=== PATIENT | female | born 1985 | race African-American/Black ===

== ENCOUNTER 2023-07-16 01:51 | Emergency (ER) | payer BC, SELFPAY ==
[2023-07-16 01:57] VITALS: BP 169/103
--- NOTE | 2023-07-16 02:10 | ED.GENMED ---
History of Present Illness
<RENETTA Philip - Last Filed: 07/16/23 21:53>
General
Chief Complaint: Chest Pain
Source: patient and previous hospital records
Exam Limitations: none
Time Seen by Provider: 07/16/23 02:06
Nursing documentation reviewed up to this point in time: agreed with
Travel History
Have you had any contact with someone who has COVID-19?: No
Do you have any symptoms of coronavirus? Fever > 100 degrees, chills, cough, shortness of breath, sore throat, loss of taste or smell, muscle aches, or headache?: No
History of Present Illness
History of Present Illness:
This is a 37 year old female with a PMH of costochondritis, GERD, and asthma presenting to the ED c/o CP, nausea and R arm pain x 3 hours. Pt states the pain is a constant 'achy, sharp, dull pain' that feels as though her 'chest is rolled over on
itself.' She states the pain is localized to the center of her chest and slightly to the left side of her chest as well. She has associated constant nausea and right arm pain that is not alleviated or aggravated by anything. Pt has been seen
multiple times in the past for similar symptoms and reports that her symptoms feel the same as her previous visits. She recently had a stress test which came back normal. She denies any SOB, vomiting, dizziness, lightheadedness, jaw pain, DUEÑAS,
abdominal pain, leg pain or swelling, or any palpitations.
Pt has a family hx of HTN, HLD, CAD, DM, CVA and CHF. She denies drug or tobaccos use and drinks alcohol socially.
Past History
<RENETTA Philip - Last Filed: 07/16/23 21:53>
Past History
ED Past Medical History: Asthma, GERD and Other (Migraine headaches)
ED Past Surgical History: and Orthopedic (Left leg surgery for a fractured tib-fib)
Patient has exhibited threatening behavior?: No
PSI?: No
Social History
Tobacco: Former smoker
Alcohol: Occasional
Drug: None
Personal: Single
Living: with family
Employment: Employed
Family History
Family History: Diabetes, Hypertension, CAD and Other (Noncontributory)
Review of Systems
<Mercy RENETTA Lopez - Last Filed: 07/16/23 21:53>
Review of Systems
Allergies reviewed?: Yes
All Other Systems: ROS reviewed and negative except as documented in HPI and ROS
Constitutional: Reports no symptoms
Respiratory: Reports no symptoms; Denies trouble breathing
Cardiac: Reports chest pain; Denies palpitations
ABD/GI: Reports nausea; Denies abdominal pain or vomiting
Musculoskeletal: Reports no symptoms; Denies edema
Skin: Reports no symptoms; Denies itching
Neurological: Reports no symptoms; Denies dizzy or headache
Phy Exam
<[facility] [place] - Last Filed: 07/16/23 21:53>
General Physical Exam
General Presentation: moderate distress
General age: appears stated age
General Skin: warm and dry
General Habitus: obese
General Mental: alert
General Hydration: appears well hydrated
Cardiovascular Exam
Cardiovascular Exam: regular rate/rhythm, no edema, no murmur and normal peripheral pulses
Heart Sounds: normal
Pulmonary Exam
Pulmonary Exam: lungs clear, no respiratory distress, no rales, chest non tender, no crackles, no rhonchi and no wheezing
Oxygen Status: room air
Cough: no cough
Gastrointestinal Exam
Gastrointestinal Exam: normal bowel sounds, non tender, soft and non distended
Palpation: generalized: No tenderness
Auscultation of Abdomen: normal
Musculoskeletal Exam
Musculoskeletal Exam: other (no chest wall tenderness)
Skin Exam
Skin Exam: normal color and warm/dry
Psychiatric Exam
Psychiatric Exam: normal mood/affect
Scores
<Lynnmercedes RENETTA Lopez - Last Filed: 07/16/23 21:53>
Heart Score for Chest Pain Patients
STEMI patient?: Not applicable
Course
<RENETTA Philip - Last Filed: 07/16/23 21:53>
Orders/Labs/Results
Orders:
Orders
07/16/23 01:55
Electrocardiogram (*1) Urgent
Reason for Study: Chest Pain
Cardiac Monitoring- Treatment ONCE
EKG- Treatment ONCE
IV Insert/Care/Rem.- Treatment PRN
Test Result ONCE
O2 Therapy [RESP] Urgent
Titrate/Wean O2 to maintain O2 sat greater than (%): 90
Special Instructions: Maintain sats >/=90%
Pulse Ox/spot Check [RESP] Urgent
Quantity: 1
Special Instructions: ON ROOM AIR
07/16/23 02:16
Complete Blood Count/With Diff Urgent
Comprehensive Metabolic Panel Urgent
HCG, Serum Qualitative Screen Urgent
Troponin I Urgent
07/16/23 02:53
D-Dimer Urgent
07/16/23 03:49
CR Chest - 2 Views Urgent
Comment:
Reason For Exam: cp
07/16/23 05:11
Troponin I Urgent
Abnormal Lab Results
07/16/23
02:16
Eosinophils % 7.3 H %
(0-6)
07/16/23 02:16
07/16/23 02:16
Vital Signs
Initial and Last Documented VS:
Initial Vital Signs
Temp Pulse Resp BP Pulse Ox
98.3 F 68 18 169/103 97
07/16/23 01:57 07/16/23 01:57 07/16/23 01:57 07/16/23 01:57 07/16/23 01:57
Last Documented Vital Signs
Temp Pulse Resp BP Pulse Ox
98.3 F 62 17 146/79 98
07/16/23 01:57 07/16/23 06:40 07/16/23 06:40 07/16/23 05:11 07/16/23 06:40
<Chadwick Iniguez, - Last Filed: 07/16/23 06:27>
Orders/Labs/Results
Orders:
Orders
07/16/23 01:55
Electrocardiogram (*1) Urgent
Reason for Study: Chest Pain
Cardiac Monitoring- Treatment ONCE
EKG- Treatment ONCE
IV Insert/Care/Rem.- Treatment PRN
Test Result ONCE
O2 Therapy [RESP] Urgent
Titrate/Wean O2 to maintain O2 sat greater than (%): 90
Special Instructions: Maintain sats >/=90%
Pulse Ox/spot Check [RESP] Urgent
Quantity: 1
Special Instructions: ON ROOM AIR
07/16/23 02:16
Complete Blood Count/With Diff Urgent
Comprehensive Metabolic Panel Urgent
HCG, Serum Qualitative Screen Urgent
Troponin I Urgent
07/16/23 02:53
D-Dimer Urgent
07/16/23 03:49
CR Chest - 2 Views Urgent
Comment:
Reason For Exam: cp
07/16/23 05:11
Troponin I Urgent
Abnormal Lab Results
07/16/23
02:16
Eosinophils % 7.3 H %
(0-6)
07/16/23 02:16
07/16/23 02:16
Vital Signs
Initial and Last Documented VS:
Initial Vital Signs
Temp Pulse Resp BP Pulse Ox
98.3 F 68 18 169/103 97
07/16/23 01:57 07/16/23 01:57 07/16/23 01:57 07/16/23 01:57 07/16/23 01:57
Last Documented Vital Signs
Temp Pulse Resp BP Pulse Ox
98.3 F 62 17 146/79 98
07/16/23 01:57 07/16/23 06:40 07/16/23 06:40 07/16/23 05:11 07/16/23 06:40
<RENETTA Philip - Last Filed: 07/16/23 21:53>
*Critical Care Note
Total Time (30-74mins, 75-104mins- exclusive of procedures): Not Applicable
ED Attending Note
<RENETTA Philip - Last Filed: 07/16/23 21:53>
-
Portions of this chart may have been created with voice recognition software.� Occasional wrong word or��sound alike� substitutions may have occurred due to the inherent limitations of voice recognition software.
<Chadwick Iniguez DO - Last Filed: 07/16/23 06:27>
ED Attending Note
Patient seen and examined by attending physician: Yes
I performed the substantive portion of visit, reviewed & personally made and approve the management plan that is documented in note by myself or OPAL.: Yes
ED Attending Note:
Pleasant 37-year-old female that presents with chest pain with nausea and right arm pain that presented approximately 3 hours prior to arrival. Patient states that she has had chest pain similar to this in the past. She had a stress test over the
summer which she states was negative. She denies tobacco use. No previous cardiac history. She does have high blood pressure which is maintained on Coreg. Patient does have a history of anxiety which is maintained on hydroxyzine.
Vital signs are stable. Patient not hypoxic
Nursing note reviewed. I agree with nursing documentation up to this point in time.
Home Meds and allergies reviewed.
NUMBER AND COMPLEXITY OF PROBLEMS ADDRESSED AT THE ENCOUNTER
� Chronic conditions affecting care: Anxiety, GERD, hypertension
� Acute Exacerbation and/or Progression of Chronic Illness: Anxiety
� Differential Diagnosis includes: Anxiety, ACS, musculoskeletal pain, costochondritis, pleurisy
AMOUNT AND/OR COMPLEXITY OF DATA TO BE REVIEWED AND ANALYZED
I performed an independent evaluation of the following and my interpretation is:
EKG: EKG shows normal sinus rhythm rate of 70 with normal intervals, normal axis. No evidence of acute ischemia present. This is a normal EKG
CT:
X-rays:
Ultrasound:
Laboratory Studies:
Other:
Review of other/old records:
Clinical information was obtained by an independent historian:
Prescriptions/Medications Considered but not given:
Further testing considered but not performed:
RISK OF COMPLICATIONS AND/OR MORBIDITY OR MORTALITY OF PATIENT MANAGEMENT
Social determinants of health affecting care: Good Social Support
Discussion with other providers:
Escalation of care including admission/observation vs risk of discharge considered:
CRITICAL CARE NOTE:
Total Time (exclusive of procedures):
Update:
Discharge Plan
Departure
Patient Disposition: Home (Routine Discharge)
Date of Disposition: 07/16/23
Time of Disposition: 06:19
Patient with high blood pressure during this ER visit?: No
Condition: Good
Discharge Problem:
Chest pain
Instructions: Chest Pain PCP Follow Up, BLOOD PRESSURE
Prescriptions:
No Action
famotidine [Pepcid] 40 mg Tablet
40 mg PO DAILY
carvedilol [Coreg] 3.125 mg Tablet
3.125 mg PO BID
ibuprofen 600 mg Tablet
600 mg PO TID PRN (Reason: pain)
pantoprazole [Protonix] 40 mg tablet,delayed release (DR/EC)
40 mg PO DAILY Qty: 30 0RF
hydroxyzine HCl 25 mg Tablet
25 mg PO TID PRN (Reason: anxiety)
Referrals:
Dillan Stone DO [Family Provider] -
Activity Restrictions/Additional Instructions:
It was a pleasure meeting you and taking part in your care. We hope for your continued healing and wellness.
Please read discharge instructions in their entirety. However, they are for general education and may not describe your exact diagnosis at discharge. Information on your ER visit and medical conditions were discussed with you along with appropriate
follow up information...
If indicated, please take your medications as instructed and indicated on discharge paperwork.
Please schedule a follow up appointment as directed. Call to schedule an appointment
Please return to the emergency department with ANY change in, persisting, or worsening of symptoms. If any of your symptoms do not improve, or persist, or become more severe within 6-12 hours, please return to the emergency department for further
care.
Please return to the emergency department if you develop a headache, neck pain/stiffness, fever greater than 100.4F, chest pain, shortness of breath, persistent nausea, vomiting, slurred speech, difficulty walking, numbness/tingling, weakness, signs
of infection or any other symptoms that are worrisome to you.
If you have any questions or concerns please do not hesitate to call the Hospital at or E-mail me directly at [email or web address]
Interventions
Interventions:
*Risk Screen - Suicide Last Done: 07/16/23 01:57
*General Assessment Last Done: 07/16/23 01:57
*Neglect/Abuse Screening Last Done: 07/16/23 01:57
ED- Fall Risk Assessment Last Done: 07/16/23 01:57
*ED COVID-19 Vaccine History Last Done: 07/16/23 01:57
*Nursing Disposition Last Done: 07/16/23 06:40
ED- Cardiac Assessment Last Done: 07/16/23 02:21
Discharge Date and Time
Discharge Date/Time: 07/16/23 06:53
[2023-07-16 02:16] VITALS: BMI 57.0
[2023-07-16 02:26] LABS: % Basophils 0.8 % (0-2); % Eosinophils 7.3 % (0-6); % Immature Granulocytes 0.2 % (0-0.5); % Lymphocytes 33.1 % (20.5-51.1); % Monocytes 7.3 % (1.7-9.3); % Neutrophils 51.3 % (42.2-75.2); Absolute Basophils 0.1 10^3/uL (0-0.2); Absolute Eosinophils 0.6 10^3/uL (0-0.7); Absolute Lymphocytes 2.7 10^3/uL (1.2-3.4); Absolute Monocytes 0.6 10^3/uL (0.1-0.6); Absolute Neutrophils 4.2 10^3/uL (1.4-6.5); Hematocrit 37.3 % (37.0-47.0); Hemoglobin 12.7 g/dL (12.0-16.0); Mean Corpuscular Hgb 28.3 pg (27.0-31.0); Mean Corpuscular Volume 83.1 fL (81.0-99.0); Mean Platelet Volume 9.3 fL (7.4-10.4); Nucleated Red Blood Cells % 0 %; Platelet Count 369 10^3/uL (130-400); Red Blood Cell Count 4.49 10^6/uL (4.20-5.40); Red Cell Dist. Width 14.3 % (11.5-14.5); White Blood Cell Count 8.3 10^3/uL (4.8-10.8)
[2023-07-16 02:35] LABS: ALT (SGPT) 34 U/L (0-35); AST (SGOT) 32 U/L (14-36); Albumin 3.9 g/dl (3.5-5.0); Alkaline Phosphatase 112 U/L (38-126); Blood Urea Nitrogen 11 mg/dl (7-17); Calcium 9.1 mg/dl (8.4-10.2); Carbon Dioxide 26 mmol/L (22-30); Chloride 107 mmol/L (98-107); Estimated Creatinine Clearance > 125 ml/min; Glucose 93 mg/dl (70-99); Potassium 3.8 mmol/L (3.5-5.1); Sodium 138 mmol/L (135-145); Total Bilirubin 0.5 mg/dl (0.2-1.3); Total Protein 6.8 g/dl (6.3-8.2); eGFR > 60.00
[2023-07-16 02:37] LABS: HCG, Serum Qualitative Screen Negative
[2023-07-16 02:47] LABS: Troponin I < 0.012 ng/ml
[2023-07-16 03:22] LABS: D-Dimer 0.34 ug/mlFEU (0.00-0.50)
[2023-07-16 05:11] VITALS: BP 146/79
[2023-07-16 05:45] LABS: Troponin I < 0.012 ng/ml
== END 2023-07-16 06:53 | disposition home or self-care (01) ==
LOC: EMR 01:51
PROVIDERS: EMERGENCY PHYSICIAN Student in an Organized Health Care Education/Training Program; FAMILY PHYSICIAN Family Medicine
DX: R07.89 Other chest pain (principal); K21.9 Gastro-esophageal reflux disease without esophagitis; J45.909 Unspecified asthma, uncomplicated; Z87.891 Personal history of nicotine dependence
CPT/HCPCS: 99285; 71046; 80053; 84484; 84703; 85025; 85379; 93005

== ENCOUNTER 2024-04-01 09:45 | Emergency (ER) | payer BC, SELFPAY ==
[2024-04-01] VITALS (7 sets, daily range): BP systolic 109–168; BP diastolic 64–108
[2024-04-01 10:16] LABS: % Basophils 0.8 % (0-2); % Eosinophils 9.2 % (0-6); % Immature Granulocytes 0.5 % (0-0.5); % Lymphocytes 24.8 % (20.5-51.1); % Neutrophils 57.7 % (42.2-75.2); Absolute Basophils 0.1 10^3/uL (0-0.2); Absolute Eosinophils 0.6 10^3/uL (0-0.7); Absolute Lymphocytes 1.6 10^3/uL (1.2-3.4); Absolute Monocytes 0.5 10^3/uL (0.1-0.6); Absolute Neutrophils 3.7 10^3/uL (1.4-6.5); Hematocrit 35.3 % (37.0-47.0); Hemoglobin 11.8 g/dL (12.0-16.0); Mean Corp Hgb Conc. 33.4 g/dL (33.0-37.0); Mean Corpuscular Hgb 28.5 pg (27.0-31.0); Mean Corpuscular Volume 85.3 fL (81.0-99.0); Mean Platelet Volume 9.2 fL (7.4-10.4); Nucleated Red Blood Cells % 0 %; Platelet Count 370 10^3/uL (130-400); Red Blood Cell Count 4.14 10^6/uL (4.20-5.40); Red Cell Dist. Width 13.4 % (11.5-14.5); White Blood Cell Count 6.4 10^3/uL (4.8-10.8)
[2024-04-01 10:24] LABS: ALT (SGPT) 23 U/L (0-35); AST (SGOT) 23 U/L (14-36); Albumin 3.8 g/dl (3.5-5.0); Alkaline Phosphatase 74 U/L (38-126); Blood Urea Nitrogen 11 mg/dl (7-17); Calcium 9.4 mg/dl (8.4-10.2); Carbon Dioxide 26 mmol/L (22-30); Chloride 106 mmol/L (98-107); Glucose 98 mg/dl (70-99); Potassium 4.4 mmol/L (3.5-5.1); Sodium 142 mmol/L (135-145); Total Bilirubin 0.3 mg/dl (0.2-1.3); Total Protein 6.7 g/dl (6.3-8.2); eGFR > 60.00
[2024-04-01 10:35] LABS: Troponin I < 0.012 ng/ml
--- NOTE | 2024-04-01 12:01 | ED.GENMED ---
History of Present Illness
General
Chief Complaint: Chest Pain
Source: patient
Exam Limitations: none
Time Seen by Provider: 04/01/24 11:16
Nursing documentation reviewed up to this point in time: agreed with
History of Present Illness
History of Present Illness:
38 yr old female presents to the ER for evaluation of chest pain. Patient reports she was awoken by chest pain 4:00 in the morning that rates her left shoulder. She has a history of intermittent chest pain and reports she is been here multiple
times does have a link trainer teacher at [place], Dr. Reg Spencer. She reports this summer in fact she had a normal stress test had a normal Holter monitor and normal echo they are unsure of the diagnosis. This is her typical chest pain.
She was given hydroxyzine to take when she gets symptoms because she is often gets anxious with symptoms. She also complains of migraine type headache with this and is very nauseous.
She is a non smoker no oral contraceptives. no dvt/pe history.
Past History
Past History
ED Past Medical History: Asthma, GERD and Other (Migraine headaches)
ED Past Surgical History: and Orthopedic (Left leg surgery for a fractured tib-fib)
Patient has exhibited threatening behavior?: No
PSI?: No
Social History
Tobacco: Former smoker
Alcohol: Occasional
Drug: None
Personal: Single
Living: with family
Employment: Employed
Family History
Family History: Diabetes, Hypertension, CAD and Other (Noncontributory)
Review of Systems
Review of Systems
Allergies reviewed?: Yes
All Other Systems: ROS reviewed and negative except as documented in HPI and ROS
Constitutional: Reports no symptoms; Denies fever, fatigue or chills
Respiratory: Reports no symptoms
Cardiac: Reports chest pain; Denies diaphoresis, palpitations or syncope
ABD/GI: Reports no symptoms
: Reports no symptoms
Musculoskeletal: Reports no symptoms
Skin: Reports no symptoms
Neurological: Reports no symptoms
Psychiatric: Reports no symptoms
Phy Exam
General Physical Exam
General Presentation: no apparent distress
General age: appears stated age
General Skin: warm and dry
General Habitus: obese
General Mental: alert
General Hydration: appears well hydrated
Cardiovascular Exam
Cardiovascular Exam: regular rate/rhythm, no murmur and normal peripheral pulses
Pulmonary Exam
Pulmonary Exam: lungs clear, no respiratory distress and chest non tender
Neurological Exam
Neurological Exam: alert and oriented x3
Musculoskeletal Exam
Musculoskeletal Exam: full ROM
Skin Exam
Skin Exam: normal color and warm/dry
Psychiatric Exam
Psychiatric Exam: normal mood/affect
Scores
Heart Score for Chest Pain Patients
STEMI patient?: Not applicable
Course
Orders/Labs/Results
Orders:
Orders
04/01/24 09:46
EKG [Electrocardiogram (*1)] Urgent
Reason for Study: Chest Pain
EKG- Treatment ONCE
04/01/24 09:57
Complete Blood Count/With Diff Urgent
Comprehensive Metabolic Panel Urgent
Troponin I Urgent
04/01/24 10:10
CR Chest - 2 Views Urgent
Comment:
Reason For Exam: CP
04/01/24 12:14
Ketorolac [Toradol] 15 mg IV NOW STA
04/01/24 12:16
0.9% Sodium Chloride 1000 ml [Nss] 1,000 ml IV BOLUS
Abnormal Lab Results
04/01/24
09:57
RBC 4.14 L 10^6/uL
(4.20-5.40)
Hgb 11.8 L g/dL
(12.0-16.0)
Hct 35.3 L %
(37.0-47.0)
Eosinophils % 9.2 H %
(0-6)
04/01/24 09:57
04/01/24 09:57
Vital Signs
Initial and Last Documented VS:
Initial Vital Signs
Temp Pulse Resp BP Pulse Ox
99.6 F 78 18 168/108 100
04/01/24 09:51 04/01/24 09:51 04/01/24 09:51 04/01/24 09:51 04/01/24 09:51
Last Documented Vital Signs
Temp Pulse Resp BP Pulse Ox
99.6 F 68 18 135/82 99
04/01/24 09:51 04/01/24 13:41 04/01/24 13:41 04/01/24 13:41 04/01/24 13:41
Filling Machine Set Up Mechanic consulted with Physician
Filling Machine Set Up Mechanic consulted with physician?: Yes
Name of Physician Consulted: Genoveva
MDM/Problems Addressed
MDM/Problems Addressed:
Patient is a 38-year-old male with frequent chest pain has had full workup by [place] [facility]ology including stress test echo and Holter monitor. She presented with chest pain at 4 AM. Troponin was done 6 hrs after and negative. She is in no acute
distress no acute findings on EKG. In addition patient complains of a headache and was given Toradol. Patient rested here slept in no acute distress after Toradol headache resolved feeling better chest pain resolved will DC home with outpatient
followed by her link trainer teacher
*Radiology
Radiology exam reviewed: radiology read reviewed
*Pulse Oximetry
Patient hypoxic: no
*EKG
Interpreted by ED Provider?: Yes
Heart Rate: 73
Rate: normal
Rhythm: sinus
Ischemia: no ischemia
*Critical Care Note
Total Time (30-74mins, 75-104mins- exclusive of procedures): Not Applicable
ED Attending Note
-
Portions of this chart may have been created with voice recognition software.� Occasional wrong word or��sound alike� substitutions may have occurred due to the inherent limitations of voice recognition software.
Discharge Plan
Departure
Patient Disposition: Home (Routine Discharge)
Date of Disposition: 04/01/24
Time of Disposition: 14:42
Patient with high blood pressure during this ER visit?: Yes
Condition: Fair
Covid-19: Not Applicable
Discharge Problem:
Chest pain
Instructions: Chest Pain NON-DHP Email Production Consultant Follow Up
Prescriptions:
No Action
famotidine [Pepcid] 40 mg Tablet
40 mg PO DAILY
carvedilol [Coreg] 3.125 mg Tablet
3.125 mg PO BID
ibuprofen 600 mg Tablet
600 mg PO TID PRN (Reason: pain)
pantoprazole [Protonix] 40 mg tablet,delayed release (DR/EC)
40 mg PO DAILY Qty: 30 0RF
hydroxyzine HCl 25 mg Tablet
25 mg PO TID PRN (Reason: anxiety)
Referrals:
Dillan Stone DO [Family Provider] -
Activity Restrictions/Additional Instructions:
Follow-up with your link trainer teacher as discussed return if any worsening of symptoms.
Interventions
Interventions:
*Risk Screen - Suicide Last Done: 04/01/24 09:46
*General Assessment Last Done: 04/01/24 09:46
*Neglect/Abuse Screening Last Done: 04/01/24 09:46
*ED COVID-19 Vaccine History Last Done: 04/01/24 09:46
*Nursing Disposition Last Done: 04/01/24 14:54
ED- Cardiac Assessment Last Done: 04/01/24 11:54
Discharge Date and Time
Print Language: AMHARIC
[2024-04-01] MEDS: TORADOL 15 MG IV (12:25)
[2024-04-01] MEDS: NSS 1000 IV (12:26)
== END 2024-04-01 15:44 | disposition home or self-care (01) ==
LOC: EMR 09:45
PROVIDERS: EMERGENCY PHYSICIAN Emergency Medicine; FAMILY PHYSICIAN Family Medicine
DX: R07.89 Other chest pain (principal); J45.909 Unspecified asthma, uncomplicated; K21.9 Gastro-esophageal reflux disease without esophagitis; Z82.49 Family history of ischemic heart disease and other diseases of the circulatory system; Z83.3 Family history of diabetes mellitus
CPT/HCPCS: 99283; 96374; 96361; 71046; 80053; 84484; 85025; 93005

== ENCOUNTER 2024-04-10 16:20 | Emergency (ER) | payer BC, SELFPAY ==
[2024-04-10 16:27] VITALS: BMI 56.1
[2024-04-10 16:36] VITALS: BP 133/78
--- NOTE | 2024-04-10 16:56 | ED.GENMED ---
History of Present Illness
General
Chief Complaint: Chest Pain
Source: patient
Time Seen by Provider: 04/10/24 16:40
History of Present Illness
History of Present Illness:
38yoF with a history of asthma and GERD presenting via EMS for evaluation of palpitations. Patient was sitting on the couch watching TV with her daughter about 1 hour ago when she had an abrupt onset of palpitations. She felt like her heart was
racing. She then started to experience chest tightness, shortness of breath, and dizziness. There was no loss of consciousness. her AppleWatch indicated that her heart rate went up to 175. Patient reports a history of similar episodes in the
past. She was last seen in the ED on 04/01/2024 for chest pain and workup was unremarkable at that time. She follows with [facility]. She reports having a Holter monitor and a stress test within the past year which were both normal. Patient
was told that she has a 'extra beat and a skipped beat.' She is not currently on any cardiac medications.
Past History
Past History
ED Past Medical History: Asthma, GERD and Other (Migraine headaches)
ED Past Surgical History: and Orthopedic (Left leg surgery for a fractured tib-fib)
Patient has exhibited threatening behavior?: No
PSI?: No
Social History
Tobacco: Former smoker
Alcohol: Occasional
Drug: None
Personal: Single
Living: with family
Employment: Employed
Family History
Family History: Diabetes, Hypertension, CAD and Other (Noncontributory)
Phy Exam
General Physical Exam
General Presentation: well appearing and no apparent distress
General age: appears stated age
General Skin: warm and dry
General Habitus: normal
General Mental: alert
General Hydration: appears well hydrated
ENT Exam
ENT Exam: normocephalic
Cardiovascular Exam
Cardiovascular Exam: regular rate/rhythm, no edema and no murmur
Pulmonary Exam
Pulmonary Exam: lungs clear, no respiratory distress, no rales, no crackles and no wheezing
Neurological Exam
Neurological Exam: alert
[place] Coma Scale
Eye Opening: Spontaneous
Verbal Response: Oriented
Motor Response: Obeys Commands
GCS Total Score: 15
Skin Exam
Skin Exam: normal color and warm/dry
Psychiatric Exam
Psychiatric Exam: normal mood/affect
Scores
Heart Score for Chest Pain Patients
STEMI patient?: No
History: Slightly or Non-Suspicious
ECG: Normal
Age: </= 45 years
Risk Factors: 1 or 2 Risk Factors
Troponin: </= Normal Limit
Heart Score for Chest Pain Patients: 1
Heart Score Risk: 2.5% MACE over next 6 weeks
Course
Orders/Labs/Results
Orders:
Orders
04/10/24 16:38
Electrocardiogram (*1) Urgent
Reason for Study: Other
Other Reason for Exam: Respiratory Distress
EKG- Treatment ONCE
Test Result ONCE
CR Chest - 2 Views Urgent
Comment:
Reason For Exam: respiratory distress
04/10/24 16:48
Complete Blood Count/With Diff Urgent
Comprehensive Metabolic Panel Urgent
D-Dimer Urgent
HCG, Serum Qualitative Screen Urgent
Comment: Notify provider if positive test present
Magnesium Urgent
Comment: D-DIMER,TSH,MAG ADDED ON BY FLOOR 5PM 04-10-24
NT-proBNP Urgent
Prothrombin Time Urgent
TSH Urgent
Troponin I Urgent
04/10/24 16:54
Add On- LAB Urgent
Tests Added?: D-dimer, TSH, magnesium
Ipratropium/Albuterol Sulfate [Duoneb] 3 ml INH R NOW STA
04/10/24 18:42
Electrocardiogram (*1) Urgent
Reason for Study: Chest Pain
EKG- Treatment ONCE
04/10/24 19:16
Troponin I Urgent
Abnormal Lab Results
04/10/24
16:48
RBC 4.01 L 10^6/uL
(4.20-5.40)
Hgb 11.2 L g/dL
(12.0-16.0)
Hct 33.4 L %
(37.0-47.0)
Eosinophils % 7.7 H %
(0-6)
Glucose 108 H mg/dl
(70-99)
04/10/24 16:48
04/10/24 16:48
Vital Signs
Initial and Last Documented VS:
Initial Vital Signs
BP
133/78
04/10/24 16:36
Last Documented Vital Signs
Temp Pulse Resp BP Pulse Ox
97.8 F 83 19 138/91 99
04/10/24 20:30 04/10/24 20:30 04/10/24 20:30 04/10/24 19:00 04/10/24 20:30
MDM/Problems Addressed
Differential Diagnosis Includes:
38yoF here with palpitations, chest tightness, SOB, and dizziness that started 1 hour ago while watching TV. History of similar symptoms in the past. All prior cardiac testing including stress test/Holter monitor has been negative. Patient is
afebrile and hemodynamically stable. She is well-appearing in no acute distress. Exam is reassuring. Differential diagnosis includes but is not limited to: Arrhythmia, thyroid dysfunction, electrolyte abnormality, ACS
Initial ED plan: Check cardiac labs, D-dimer, TSH, magnesium, EKG, and CXR.
*EKG
Interpreted by ED Provider?: Yes
EKG Intrepretation Date: 04/10/24
Heart Rate: 71
Rate: normal
Rhythm: sinus
[place]: normal axis
Interval: normal interval
QRS Pattern: normal QRS
Ischemia: no ischemia
*Critical Care Note
Total Time (30-74mins, 75-104mins- exclusive of procedures): Not Applicable
Update Note
Update Note:
EKG shows normal sinus rhythm without ischemic changes. Troponin and BNP within normal limits. D-dimer normal making PE very unlikely. Remainder of labs reassuring including normal electrolytes and TSH. Chest x-ray clear. Delta troponin/EKG
performed at 3 hours unchanged. No telemetry events throughout ED stay. Patient is feeling improved on multiple reassessments. She is stable for discharge. She was encouraged to follow-up with her PCP and calender let off operator. ED return precautions
discussed. She expressed understanding is agreeable to plan. She was discharged in stable condition.
ED Attending Note
-
Portions of this chart may have been created with voice recognition software.� Occasional wrong word or��sound alike� substitutions may have occurred due to the inherent limitations of voice recognition software.
Discharge Plan
Departure
Patient Disposition: Home (Routine Discharge)
Date of Disposition: 04/10/24
Time of Disposition: 20:27
Patient with high blood pressure during this ER visit?: No
Discharge Problem:
Chest pain, Palpitations
Instructions: Chest Pain NON-DHP Hospice Home Care Coordinator Follow Up
Prescriptions:
No Action
famotidine [Pepcid] 40 mg Tablet
40 mg PO DAILY
carvedilol [Coreg] 3.125 mg Tablet
3.125 mg PO BID
ibuprofen 600 mg Tablet
600 mg PO TID PRN (Reason: pain)
pantoprazole [Protonix] 40 mg tablet,delayed release (DR/EC)
40 mg PO DAILY Qty: 30 0RF
hydroxyzine HCl 25 mg Tablet
25 mg PO TID PRN (Reason: anxiety)
Referrals:
Dillan Stone DO [Family Provider] -
Activity Restrictions/Additional Instructions:
Please call Friday to schedule follow-up appointments with your family doctor and calender let off operator. Return to the ER with any new or worsening symptoms.
Interventions
Interventions:
*Risk Screen - Suicide Last Done: 04/10/24 16:27
*General Assessment Last Done: 04/10/24 16:27
*Neglect/Abuse Screening Last Done: 04/10/24 16:27
ED- Fall Risk Assessment Last Done: 04/10/24 16:38
*ED COVID-19 Vaccine History Last Done: 04/10/24 16:27
*Nursing Disposition Last Done: 04/10/24 20:47
ED- Cardiac Assessment Last Done: 04/10/24 16:38
Discharge Date and Time
Discharge Date/Time: 04/10/24 20:52
Print Language: HUNGARIAN
[2024-04-10 16:58] LABS: % Basophils 0.7 % (0-2); % Eosinophils 7.7 % (0-6); % Immature Granulocytes 0.1 % (0-0.5); % Lymphocytes 29.2 % (20.5-51.1); % Monocytes 6.8 % (1.7-9.3); % Neutrophils 55.5 % (42.2-75.2); Absolute Basophils 0.1 10^3/uL (0-0.2); Absolute Eosinophils 0.5 10^3/uL (0-0.7); Absolute Monocytes 0.5 10^3/uL (0.1-0.6); Absolute Neutrophils 3.8 10^3/uL (1.4-6.5); Hematocrit 33.4 % (37.0-47.0); Hemoglobin 11.2 g/dL (12.0-16.0); Mean Corp Hgb Conc. 33.5 g/dL (33.0-37.0); Mean Corpuscular Hgb 27.9 pg (27.0-31.0); Mean Corpuscular Volume 83.3 fL (81.0-99.0); Mean Platelet Volume 8.9 fL (7.4-10.4); Nucleated Red Blood Cells % 0 %; Platelet Count 376 10^3/uL (130-400); Red Blood Cell Count 4.01 10^6/uL (4.20-5.40); Red Cell Dist. Width 13.3 % (11.5-14.5); White Blood Cell Count 6.9 10^3/uL (4.8-10.8)
[2024-04-10 17:00] VITALS: BP 128/78
[2024-04-10 17:07] LABS: INR 1.01; PT 13.1 Sec (11.4-14.6)
[2024-04-10 17:10] LABS: D-Dimer 0.43 ug/mlFEU (0.00-0.50)
[2024-04-10] MEDS: DUONEB 3 ML INH (17:11)
[2024-04-10 17:12] LABS: HCG, Serum Qualitative Screen Negative
[2024-04-10 17:15] LABS: ALT (SGPT) 24 U/L (0-35); AST (SGOT) 30 U/L (14-36); Albumin 3.8 g/dl (3.5-5.0); Alkaline Phosphatase 77 U/L (38-126); Blood Urea Nitrogen 12 mg/dl (7-17); Calcium 9.1 mg/dl (8.4-10.2); Carbon Dioxide 26 mmol/L (22-30); Chloride 106 mmol/L (98-107); Estimated Creatinine Clearance > 125 ml/min; Glucose 108 mg/dl (70-99); Magnesium 1.9 mg/dl (1.6-2.3); Potassium 4.3 mmol/L (3.5-5.1); Sodium 140 mmol/L (135-145); Total Bilirubin 0.3 mg/dl (0.2-1.3); Total Protein 6.6 g/dl (6.3-8.2); eGFR > 60.00
[2024-04-10 17:24] LABS: NT-proBNP 44.8 pg/ml; Troponin I < 0.012 ng/ml
[2024-04-10 17:45] LABS: TSH 0.59 uIU/ml (0.47-4.68)
[2024-04-10 18:04] VITALS: BP 116/66
[2024-04-10 19:00] VITALS: BP 138/91
[2024-04-10 19:58] LABS: Troponin I < 0.012 ng/ml
== END 2024-04-10 20:52 | disposition home or self-care (01) ==
LOC: EMR 16:20
PROVIDERS: Physician Assistant; EMERGENCY PHYSICIAN Student in an Organized Health Care Education/Training Program; FAMILY PHYSICIAN Family Medicine
DX: R00.2 Palpitations (principal); R07.89 Other chest pain; R06.02 Shortness of breath; R42 Dizziness and giddiness; J45.909 Unspecified asthma, uncomplicated; K21.9 Gastro-esophageal reflux disease without esophagitis; G43.909 Migraine, unspecified, not intractable, without status migrainosus; Z87.891 Personal history of nicotine dependence; Z82.49 Family history of ischemic heart disease and other diseases of the circulatory system; Z88.0 Allergy status to penicillin; Z88.8 Allergy status to other drugs, medicaments and biological substances
CPT/HCPCS: 99284; 94640; 71046; 80053; 83735; 83880; 84443; 84484; 84703; 85025; 85379; 85610; 93005

== ENCOUNTER 2024-09-30 00:38 | Emergency (ER) | payer OTHER, SELFPAY ==
[2024-09-30 00:41] VITALS: BP 154/96
[2024-09-30 01:15] LABS: Hematocrit 32.7 % (37.0-47.0); Mean Corp Hgb Conc. 33.6 g/dL (33.0-37.0); Mean Corpuscular Hgb 27.7 pg (27.0-31.0); Mean Corpuscular Volume 82.4 fL (81.0-99.0); Mean Platelet Volume 9.2 fL (7.4-10.4); Platelet Count 345 10^3/uL (130-400); Red Blood Cell Count 3.97 10^6/uL (4.20-5.40)
[2024-09-30 01:25] LABS: ALT (SGPT) 36 U/L (0-35); AST (SGOT) 29 U/L (14-36); Albumin 3.7 g/dl (3.5-5.0); Alkaline Phosphatase 81 U/L (38-126); Blood Urea Nitrogen 15 mg/dl (7-17); Calcium 9.3 mg/dl (8.4-10.2); Carbon Dioxide 24 mmol/L (22-30); Chloride 110 mmol/L (98-107); Glucose 103 mg/dl (70-99); Potassium 4.2 mmol/L (3.5-5.1); Sodium 143 mmol/L (135-145); Total Bilirubin 0.3 mg/dl (0.2-1.3); Total Protein 6.6 g/dl (6.3-8.2); eGFR > 60.00
[2024-09-30 01:28] LABS: % Eosinophils 8.8 % (0-6); % Immature Granulocytes 0.1 % (0-0.5); % Lymphocytes 35.6 % (20.5-51.1); % Monocytes 8.7 % (1.7-9.3); % Neutrophils 45.8 % (42.2-75.2); Absolute Basophils 0.1 10^3/uL (0-0.2); Absolute Eosinophils 0.6 10^3/uL (0-0.7); Absolute Lymphocytes 2.5 10^3/uL (1.2-3.4); Absolute Monocytes 0.6 10^3/uL (0.1-0.6); Absolute Neutrophils 3.2 10^3/uL (1.4-6.5); Nucleated Red Blood Cells % 0 %
[2024-09-30 01:40] LABS: Troponin I < 0.012 ng/ml
--- NOTE | 2024-09-30 03:30 | DOWNTIME ---
There was a [employer] Librarian Downtime on 09/30/2024 from 0200 to 10/01/2023 at 0318 . Downtime documentation of patient's care, including medication administrations, has been reconciled in the electronic record per guidelines. Refer to the
patient's paper chart under the miscellaneous tab to see printed paper medication records and downtime forms.
--- NOTE | 2024-09-30 03:35 | ED.GENMED ---
History of Present Illness
General
Chief Complaint: Breathing Problem
Source: patient
Exam Limitations: none
Time Seen by Provider: 09/30/24 03:21
Nursing documentation reviewed up to this point in time: agreed with
History of Present Illness
History of Present Illness:
38-year-old female presenting to the emergency department today for concern of chest pain shortness of breath starting roughly 1 hour prior to arrival when doing the dishes. Chest discomfort is ongoing feels like a pressure with associated
shortness of breath denies similar symptoms in the past. Does have a history of asthma but denies any wheezing. Denies any recent trauma surgery immobilization, leg swelling, history of blood clots or estrogen product usage.
Past History
Past History
ED Past Medical History: Asthma, GERD and Other (Migraine headaches)
ED Past Surgical History: and Orthopedic (Left leg surgery for a fractured tib-fib)
Patient has exhibited threatening behavior?: No
PSI?: No
Social History
Tobacco: Former smoker
Alcohol: Occasional
Drug: None
Personal: Single
Living: with family
Employment: Employed
Family History
Family History: Diabetes, Hypertension, CAD and Other (Noncontributory)
Review of Systems
Review of Systems
Allergies reviewed?: Yes
All Other Systems: ROS reviewed and negative except as documented in HPI and ROS
Phy Exam
Physical Exam
Physical Exam:
GENERAL: Alert , in no apparent distress
EYE: pupils equal and reactive
NECK: Supple, no significant adenopathy.
ENT: o/p clr, mmm.
CARDIAC: Regular rate and rhythm .
LUNGS: Clear breath sounds bilaterally, no acute respiratory distress, no wheezes/rales/rhonchi
ABDOMEN: Soft, without focal tenderness, no r/g, no cvat
NEUROLOGICAL: Alert and oriented, no focal neuro deficits
SKIN: Warm and dry, skin intact.
MUSCULOSKELETAL: No edema, well perfused.
PSYCH: Normal and appropriate interaction.
Course
Orders/Labs/Results
Orders:
Orders
09/30/24 00:49
Electrocardiogram (*1) Urgent
Reason for Study: Chest Pain
09/30/24 00:50
EKG- Treatment ONCE
09/30/24 01:02
Complete Blood Count/With Diff Urgent
Comprehensive Metabolic Panel Urgent
HCG, Serum Qualitative Screen Urgent
Comment: ADD ON
NT-proBNP Urgent
Comment: ADD ON
Troponin I Urgent
09/30/24 02:58
Aspirin 325 mg .ROUTE .STK-MED ONE
09/30/24 03:21
Add On- LAB Urgent
Tests Added?: serum hcg, pro BNP
09/30/24 03:22
CR Chest - 2 Views Urgent
Comment:
Reason For Exam: chest pain, SOB
09/30/24 03:23
Electrocardiogram (*1) Urgent
Reason for Study: Chest Pain
EKG- Treatment ONCE
09/30/24 03:52
Troponin I Urgent
Abnormal Lab Results
09/30/24
01:02
RBC 3.97 L 10^6/uL
(4.20-5.40)
Hgb 11.0 L g/dL
(12.0-16.0)
Hct 32.7 L %
(37.0-47.0)
Eosinophils % 8.8 H %
(0-6)
Chloride 110 H mmol/L
(98-107)
Glucose 103 H mg/dl
(70-99)
ALT 36 H U/L
(0-35)
09/30/24 01:02
09/30/24 01:02
Vital Signs
Initial and Last Documented VS:
Initial Vital Signs
Pulse Resp BP
74 26 154/96
09/30/24 00:41 09/30/24 00:41 09/30/24 00:41
Last Documented Vital Signs
Temp Pulse Resp BP Pulse Ox
98 F 75 16 148/97 100
09/30/24 02:47 09/30/24 03:57 09/30/24 03:57 09/30/24 03:57 09/30/24 02:47
MDM/Problems Addressed
MDM/Problems Addressed:
38-year-old female presenting to the emergency department today with concerns of shortness of breath chest pressure starting roughly an hour prior to arrival. On arrival here patient with normal vital signs normal heart rate normal pulse ox no
recent trauma surgery immobilization patient is PERC negative. PE very unlikely. EKG is normal. Labs unremarkable initial troponin negative. Second troponin negative patient no distress here sleeping. Does not appear to be consistent with ACS
normal chest x-ray. Patient appears stable for outpatient cardiology follow-up. Has seen multiple portrait photographer in the past with no explanation of her symptoms. Return precautions given.
*Critical Care Note
Total Time (30-74mins, 75-104mins- exclusive of procedures): Not Applicable
ED Attending Note
-
Portions of this chart may have been created with voice recognition software.� Occasional wrong word or��sound alike� substitutions may have occurred due to the inherent limitations of voice recognition software.
Discharge Plan
Departure
Patient Disposition: Home (Routine Discharge)
Date of Disposition: 09/30/24
Time of Disposition: 04:46
Patient with high blood pressure during this ER visit?: No
Condition: Good
Covid-19: Not Applicable
Discharge Problem:
Chest pain
Instructions: Chest Pain NON-[facility] Interventional Pain Physician Follow Up
Prescriptions:
No Action
famotidine [Pepcid] 40 mg Tablet
40 mg PO DAILY
carvedilol [Coreg] 3.125 mg Tablet
3.125 mg PO BID
ibuprofen 600 mg Tablet
600 mg PO TID PRN (Reason: pain)
pantoprazole [Protonix] 40 mg tablet,delayed release (DR/EC)
40 mg PO DAILY Qty: 30 0RF
hydroxyzine HCl 25 mg Tablet
25 mg PO TID PRN (Reason: anxiety)
Referrals:
Dillan Stone DO [Family Provider] -
Activity Restrictions/Additional Instructions:
You came to the emergency department today with concerns of chest pain. Here you had a reassuring assessment. Please follow closely with your portrait photographer. Return for any worsening, new or concerning symptoms.
Interventions
Interventions:
*Risk Screen - Suicide Last Done: 09/30/24 00:41
*General Assessment Last Done: 09/30/24 03:58
*Neglect/Abuse Screening Last Done: 09/30/24 00:41
*ED- Fall Risk Assessment Last Done: 09/30/24 03:57
*ED COVID-19 Vaccine History Last Done: 09/30/24 03:58
ED- Cardiac Assessment Last Done: 09/30/24 03:58
ED- Pulmonary Assessment Last Done: 09/30/24 03:58
Discharge Date and Time
Print Language: CYPRIOT
[2024-09-30 03:48] LABS: HCG, Serum Qualitative Screen Negative
[2024-09-30 03:57] VITALS: BP 148/97
[2024-09-30 04:04] LABS: NT-proBNP 29.1 pg/ml
[2024-09-30 04:36] LABS: Troponin I < 0.012 ng/ml
== END 2024-09-30 05:06 | disposition home or self-care (01) ==
LOC: EMR 00:38
PROVIDERS: Physician Assistant; EMERGENCY PHYSICIAN Emergency Medicine; FAMILY PHYSICIAN Family Medicine
DX: R07.9 Chest pain, unspecified (principal); R06.02 Shortness of breath; J45.909 Unspecified asthma, uncomplicated; Z87.891 Personal history of nicotine dependence
CPT/HCPCS: 99285; 71046; 80053; 83880; 84484; 84703; 85025; 93005

== ENCOUNTER 2025-05-01 19:01 | Emergency (ER) | payer OTHER, BC, SELFPAY ==
[2025-05-01 19:04] VITALS: BP 201/115
[2025-05-01 19:24] LABS: Hematocrit 37.4 % (37.0-47.0); Hemoglobin 11.8 g/dL (12.0-16.0); Mean Corp Hgb Conc. 31.6 g/dL (33.0-37.0); Mean Corpuscular Volume 87.6 fL (81.0-99.0); Nucleated Red Blood Cells % 0 %; Platelet Count 334 10^3/uL (130-400); Red Cell Dist. Width 15.9 % (11.5-14.5)
[2025-05-01 19:36] LABS: HCG, Serum Qualitative Screen Positive
[2025-05-01 19:43] VITALS: BMI 55.1
[2025-05-01 19:44] LABS: ALT (SGPT) 54 U/L (0-35); AST (SGOT) 39 U/L (14-36); Albumin 3.7 g/dl (3.5-5.0); Alkaline Phosphatase 79 U/L (38-126); Blood Urea Nitrogen 12 mg/dl (7-17); Calcium 9.2 mg/dl (8.4-10.2); Carbon Dioxide 26 mmol/L (22-30); Chloride 104 mmol/L (98-107); Glucose 87 mg/dl (70-99); Lipase 109 U/L (23-300); Potassium 3.8 mmol/L (3.5-5.1); Sodium 133 mmol/L (135-145); Total Protein 6.8 g/dl (6.3-8.2); eGFR > 60.00
--- NOTE | 2025-05-01 19:44 | EDRN ---
Pt complains of lower abdominal pain R > L. Pt is 5 weeks . G3A1P1. Pt had spontaneous miscarriage with first 2013. Pain has had pt doubled over throughout the day which prompted ED visit. Earlier in the week, pt had crampy
intermittent pain. Pain now is more intense. Pain waxes and wanes described as sharp when intense as well as crampy. Nausea no vomiting. No fever/chills/cough, cp, sob, urinary symptoms. Appetite decreased. No pain medication taken.
[2025-05-01 19:50] LABS: Urine Character Slightly Cloudy (Clear)
[2025-05-01 19:51] VITALS: BP 123/71
--- NOTE | 2025-05-01 19:58 | EDRN ---
Pt stopped taking all her medications when she found out she is . Pt had a tele health appointment with a doctor regarding BP medication and she was prescribed labetalol but says she is concerned about taking this and wants to talk with her
regular doctor about BP medication. Repeat BP in ED normal and pt says that is normal for her.
--- NOTE | 2025-05-01 20:23 | ED.GENMED ---
History of Present Illness
<Hugh Dos Santos MD - Last Filed: 05/03/25 19:47>
General
Chief Complaint: Abdominal Pain
Time Seen by Provider: 05/01/25 20:18
History of Present Illness
History of Present Illness:
Patient is a 39-year-old G3, P1 at 5 weeks presenting to the emergency department abdominal pain. Patient states that her for her first in 2013 was a spontaneous . Second in 2014 was uneventful. This is her
third . She has developed abdominal pain for the past week. Is in the right lower quadrant. It is a dull ache that intermittently worsens. It has been persistent for the past week. Some nausea vomiting that she attributes to .
No diarrhea. No vaginal discharge. No vaginal bleeding. Prior . No history of kidney stones. No urinary symptoms.
Past History
<Hugh Dos Santos MD - Last Filed: 05/03/25 19:47>
Past History
ED Past Medical History: Asthma, GERD and Other (Migraine headaches)
ED Past Surgical History: and Orthopedic (Left leg surgery for a fractured tib-fib)
Patient has exhibited threatening behavior?: No
PSI?: No
Social History
Tobacco: Former smoker
Alcohol: Occasional
Drug: None
Personal: Single
Living: with family
Employment: Employed
Family History
Family History: Diabetes, Hypertension, CAD and Other (Noncontributory)
Phy Exam
<Hugh Dos Santos MD - Last Filed: 05/03/25 19:47>
Physical Exam
Physical Exam:
GENERAL: in no acute distress
HEENT: normocephalic, extraocular movements intact, moist oral mucosa
NECK: normal inspection
RESPIRATORY: no respiratory distress, clear to auscultation bilaterally
CARDIOVASCULAR: regular rate and rhythm
ABDOMEN/: soft, non-distended, right lower quadrant tenderness no rebound or guarding
EXTREMITIES: non-tender, no edema/swelling
NEUROLOGIC: awake and alert, moves all extremities
SKIN: warm
Course
<Hugh Dos Santos MD - Last Filed: 05/03/25 19:47>
Orders/Labs/Results
Orders:
Orders
05/01/25 19:08
Test Result ONCE
05/01/25 19:18
Beta HCG Quantitative Urgent
Comment: ADD ON
Complete Blood Count/With Diff Urgent
Comprehensive Metabolic Panel Urgent
HCG, Serum Qualitative Screen Urgent
Lipase Urgent
05/01/25 19:38
Add On- LAB Urgent
Tests Added?: hcg quantitative
05/01/25 19:41
Urinalysis Reflex To Culture Urgent
Date Specimen was Collected: 05/01/25
Time Specimen was Collected: 19:37
Urine Microscopic Reflex Cult Urgent
Urine Culture Urgent
COLLEEN Source: U
Specimen Description:
Date Specimen was Collected: 05/01/25
Time Specimen was Collected: 19:37
05/01/25 20:23
US Abdomen Complete/Upper Urgent
Comment:
Reason For Exam: RLQ pain, eval kidneys/appendix
05/01/25 21:08
w/ Transvaginal US [US W Transvaginal] Urgent
Comment:
Reason For Exam: RLQ pain
05/02/25 01:30
Acetaminophen [Tylenol] 1,000 mg PO NOW STA
05/02/25 05:37
Ondansetron Orally Disint [Zofran Odt (Orally Disintegrating)] 4 mg PO NOW STA
05/02/25 06:20
Ketorolac [Toradol] 30 mg IM NOW STA
05/02/25 07:30
Methotrexate Sodium/Pf [Methotrexate] 50 mg Syringe [Syringe Non-Pump] 0 ml IM ONCE
Methotrexate Sodium/Pf [Methotrexate] 50 mg Syringe [Syringe Non-Pump] 0 ml IM ONCE
Abnormal Lab Results
05/01/25 05/01/25
19:18 19:41
Hgb 11.8 L g/dL
(12.0-16.0)
MCHC 31.6 L g/dL
(33.0-37.0)
RDW 15.9 H %
(11.5-14.5)
Absolute Monos (auto) 0.7 H 10^3/uL
(0.1-0.6)
Sodium 133 L mmol/L
(135-145)
AST 39 H U/L
(14-36)
ALT 54 H U/L
(0-35)
Urine Bacteria (Reflex) Many A
(Negative)
Urine Albumin (Reflex) 1+ A
(Neg - Trace)
05/01/25 19:18
05/01/25 19:18
Vital Signs
Initial and Last Documented VS:
Initial Vital Signs
Temp Pulse Resp BP Pulse Ox
98.4 F 88 18 201/115 100
05/01/25 19:04 05/01/25 19:04 05/01/25 19:04 05/01/25 19:04 05/01/25 19:04
Last Documented Vital Signs
Temp Pulse Resp BP Pulse Ox
99.2 F 74 16 123/64 97
05/02/25 07:56 05/02/25 07:56 05/02/25 07:56 05/02/25 07:56 05/02/25 07:56
Dominicklt;Diana Vera DO - Last Filed: 05/02/25 06:15>
Orders/Labs/Results
Orders:
Orders
05/01/25 19:08
Test Result ONCE
05/01/25 19:18
Beta HCG Quantitative Urgent
Comment: ADD ON
Complete Blood Count/With Diff Urgent
Comprehensive Metabolic Panel Urgent
HCG, Serum Qualitative Screen Urgent
Lipase Urgent
05/01/25 19:38
Add On- LAB Urgent
Tests Added?: hcg quantitative
05/01/25 19:41
Urinalysis Reflex To Culture Urgent
Date Specimen was Collected: 05/01/25
Time Specimen was Collected: 19:37
Urine Microscopic Reflex Cult Urgent
Urine Culture Urgent
COLLEEN Source: U
Specimen Description:
Date Specimen was Collected: 05/01/25
Time Specimen was Collected: 19:37
05/01/25 20:23
US Abdomen Complete/Upper Urgent
Comment:
Reason For Exam: RLQ pain, eval kidneys/appendix
05/01/25 21:08
w/ Transvaginal US [US W Transvaginal] Urgent
Comment:
Reason For Exam: RLQ pain
05/02/25 01:30
Acetaminophen [Tylenol] 1,000 mg PO NOW STA
05/02/25 05:37
Ondansetron Orally Disint [Zofran Odt (Orally Disintegrating)] 4 mg PO NOW STA
05/02/25 06:20
Ketorolac [Toradol] 30 mg IM NOW STA
05/02/25 07:30
Methotrexate Sodium/Pf [Methotrexate] 50 mg Syringe [Syringe Non-Pump] 0 ml IM ONCE
Methotrexate Sodium/Pf [Methotrexate] 50 mg Syringe [Syringe Non-Pump] 0 ml IM ONCE
Abnormal Lab Results
05/01/25 05/01/25
19:18 19:41
Hgb 11.8 L g/dL
(12.0-16.0)
MCHC 31.6 L g/dL
(33.0-37.0)
RDW 15.9 H %
(11.5-14.5)
Absolute Monos (auto) 0.7 H 10^3/uL
(0.1-0.6)
Sodium 133 L mmol/L
(135-145)
AST 39 H U/L
(14-36)
ALT 54 H U/L
(0-35)
Urine Bacteria (Reflex) Many A
(Negative)
Urine Albumin (Reflex) 1+ A
(Neg - Trace)
05/01/25 19:18
05/01/25 19:18
Vital Signs
Initial and Last Documented VS:
Initial Vital Signs
Temp Pulse Resp BP Pulse Ox
98.4 F 88 18 201/115 100
05/01/25 19:04 05/01/25 19:04 05/01/25 19:04 05/01/25 19:04 05/01/25 19:04
Last Documented Vital Signs
Temp Pulse Resp BP Pulse Ox
99.2 F 74 16 123/64 97
05/02/25 07:56 05/02/25 07:56 05/02/25 07:56 05/02/25 07:56 05/02/25 07:56
Information
Weeks gestation: Weeks: (< 5 weeks)
Location: Location: (ectopic)
<Hugh Dos Santos MD - Last Filed: 05/03/25 19:47>
MDM/Problems Addressed
Differential Diagnosis Includes:
Patient is a 39-year-old G3, P1 5 weeks with no care just yet presenting to the emergency department with 1 week of dull right lower quadrant abdominal pain that exacerbated without any clear triggers. Vitals unremarkable. Exam
does show reproducible tenderness. Differential is broad but concern ectopic versus kidney stone versus UTI. History and exam not consistent with ovarian torsion. Could be appendicitis. Will check blood work urinalysis and ultrasound.
<Hugh Dos Santos MD - Last Filed: 05/03/25 19:47>
*Pulse Oximetry
SaO2: 100
Oxygen Mode of Delivery: Room air
Patient hypoxic: no
*Critical Care Note
Total Time (30-74mins, 75-104mins- exclusive of procedures): Not Applicable
<Hugh Dos Santos MD - Last Filed: 05/03/25 19:47>
Update Note
Update Note:
Patient hCG quant is lower than expected. Otherwise blood work is reassuring. Ultrasound consistent with ectopic . Vital signs have remained stable. Pain is controlled. Discussed with Dr. Johnson who will evaluate patient at
bedside. Patient signed out to oncoming attending pending OB recommendations
<Diana Vera DO - Last Filed: 05/02/25 06:15>
Update Note
Update Note:
Patient hCG quant is lower than expected. Otherwise blood work is reassuring. Ultrasound consistent with ectopic . Vital signs have remained stable. Pain is controlled. Discussed with Dr. Johnson who will evaluate patient at
bedside. Patient signed out to oncoming attending pending OB recommendations
01:30
Patient has been evaluated by Dr. Johnson at bedside.
Despite lengthy conversation, patient remains undecided as to course of action regarding ectopic. She requests more time to think about her options which at this point include IM methotrexate with follow-up hCG at 4 and 7 days versus surgical
removal of ectopic .
She now complains of headache, denies nausea, no neck nor back pain. Currently without abdominal pain. Requesting something for her headache.
Will trial a dose of Tylenol.
05:45
After several lengthy discussions with OB, Dr Johnson, as well as discussion with her own FACTORY MACHINE COMPUTER OPERATOR (Dr Urbano) at [facility], pt has come to a decision and requests to speak with Dr Johnson again.
COLOR BUFFER aware but currently attending to difficult delivery and may be a few hours until she can return to the ED.
Pt initial resistant to divulge her decision. She is clearly upset, tearful and now c/o nausea. Will treat with Zofran ODT
She has elected methotrexate.
OB aware and will order methotrexate dose.
ED Attending Note
<Hugh Dos Santos MD - Last Filed: 05/03/25 19:47>
-
Portions of this chart may have been created with voice recognition software.� Occasional wrong word or��sound alike� substitutions may have occurred due to the inherent limitations of voice recognition software.
Discharge Plan
Departure
Patient Disposition: Home (Routine Discharge)
Date of Disposition: 05/02/25
Time of Disposition: 07:06
Patient with high blood pressure during this ER visit?: No
Condition: Good
Discharge Problem:
Ectopic
Instructions: Ectopic - ED (DC)
Prescriptions:
No Action
No Current Medications
0
Referrals:
Isaias Urbano MD [Non-Admitting Privileges, Gynecology] - Follow up in 2-3 days
UNKNOWN - PT NOT,INTERVIEWE [Family Provider]
Activity Restrictions/Additional Instructions:
You will need HCG lab drawn on Sunday 05/06, and again on Wednesday 05/09.
Folow up with Dr Urbano for recheck and with blood work results.
Interventions
Interventions:
*Risk Screen - Suicide Last Done: 05/01/25 19:06
*General Assessment Last Done: 05/01/25 19:06
*Neglect/Abuse Screening Last Done: 05/01/25 19:06
*ED COVID-19 Vaccine History Last Done: 05/01/25 19:06
*ED Influenza Vaccine History Last Done: 05/01/25 19:06
*Nursing Disposition Last Done: 05/02/25 07:56
VT-Xuxvyy-Jkbvgqdcsc Assessment Last Done: 05/01/25 19:56
Discharge Date and Time
Discharge Date/Time: 05/02/25 07:59
Print Language: CUBAN
[2025-05-01 20:31] LABS: Urine Squamous Cell 26-30 /LPF (Few)
[2025-05-01 20:33] LABS: Urine Red Blood Cell 0-2 /HPF (0-2)
[2025-05-01 23:45] VITALS: BP 155/80
[2025-05-02] MEDS: TYLENOL 1000 MG PO (01:33)
--- NOTE | 2025-05-02 01:37 | EDRN ---
Pt sitting with arms crossed, ear bud in. This RN asked pt to rate her headache and she replied 'If 10 is I'm giving to another baby then it's a 10 I should be giving to another baby but I'm not because I have an ectopic .'
Informed pt she was being given 1000mg tylenol and she said 'I could have pulled this out of my purse.' Pt looked at the pills 'Girl, this is legit just tylenol.' Pt took the tylenol. Asked pt if she needs anything and she curtly said 'No.' Per
Dr Vera, pt is making a decision on what she wants to do and when she makes up her mind, Dr Vera is supposed to call Dr Johnson - Dr Vera explained this to pt.
--- NOTE | 2025-05-02 03:59 | CON.MD ---
CC / HPI / ROS
-
Chief Complaint:
right sided abdominal pain
History of Present Illness:
Tammi is a 39 yo F at approx 5 weeks gestation presenting with right sided abdominal pain over the past week that has waxed and waned. She states that she had a positive test 1-2w ago and associated nausea and vomiting. She denies
fevers, chills, chest pain, SOB, and vaginal bleeding. LMP 08/18/24. Sees Dr. Cassie Urbano with [facility], last seen in August 2024. Hx of 1 prior in 2014 and miscarriage in 2013.
Review of Systems:
listed in HPI.
Current/Past Med/Surg History
-
Reason for Visit: abdominal pain
Respiratory: No Issues Reported
Vascular / Heart: No Issues Reported
Neurological / Brain / Spinal Cord: No Issues Reported
Gastrointestinal/Bowel/Digestive: No Issues Reported
Musculoskeletal: No Issues Reported
Endocrine: No Issues Reported
Medications / Supplements
Medication / Herbal Supplements: No
�Medication �Instructions �Recorded
No Meds [No Current Medications] 05/01/25
Allergies
Allergies: Yes
Allergy/AdvReac Type Severity Reaction Status Date / Time
cyclobenzaprine (From Allergy Unknown Verified 05/01/25 19:07
Flexeril)
methylprednisolone Allergy Unknown Verified 05/01/25 19:07
Penicillins Allergy Anaphylaxis Verified 05/01/25 19:07
prednisone Allergy Unknown Verified 05/01/25 19:07
Vital Signs / Labs
-
Vital Signs and Labs:
Temp Pulse Resp BP Pulse Ox
98.4 F 74 16 124/64 98
05/01/25 19:04 05/02/25 04:00 05/02/25 04:00 05/02/25 04:00 05/02/25 04:00
05/01/25 19:18
05/01/25 19:18
05/01/25 05/01/25
19:18 19:41
Hgb 11.8 L
MCHC 31.6 L
RDW 15.9 H
Absolute Monos (auto) 0.7 H
Sodium 133 L
AST 39 H
ALT 54 H
Urine Bacteria (Reflex) Many A
Urine Albumin (Reflex) 1+ A
hCG 2430.
Data Reviewed / Physical Exam
-
Vital Signs
Temp Pulse Resp BP Pulse Ox
98.4 F 74 16 124/64 98
05/01/25 19:04 05/02/25 04:00 05/02/25 04:00 05/02/25 04:00 05/02/25 04:00
Lab Results
05/01/25
19:18
Glucose 87
Pelvic US:
The uterus is anteverted measures 11.3 x 6.2 cm. The endometrium measures 12 mm in thickness. An anterior transmural fibroid measures 5.5 x 4.0 x 4.6 cm. No evidence for an intrauterine gestation.
The left ovary is not visualized.
The right ovary measures 3.0 x 1.9 x 2.6 cm. Complex 2.1 cm ovoid hypoechoic structure in the right ovary with a peripheral ring of color Doppler flow.
No free fluid identified in the pelvis.
Physical Exam:
General: no acute distress
Card: regular HR
Lungs: no increased WOB
Abd: soft, mild RLQ tenderness, obese
Assessemnt/Plan
-
Tammi is a 39 yo F found to have a right ectopic .
-Discussed ectopic management including medical and surgical management. Reviewed methotrexate is an injection used to treat ectopic . Reviewed that patient does not have any absolute or relative contraindications to MTX use.
Explained option for laparoscopic right salpingectomy. Reviewed that patient's BMI is elevated making surgery technically challenging and not without risk. Patient wants to preserve fertility as she is hopeful of spontaneous .
-Reviewed mild transaminitis (AST/ALT, 39/54). Discussed that this is not a contraindication and is reasonable to use methotrexate for mgmt of ectopic . Reviewed the potential for still needing surgical mgmt if inappropriate drop in hCG
and/or rupture of ectopic.
-Reviewed that there is NO free fluid on ultrasound, mass is 2.1cm in size, and there is no FHR seen. The patient is hemodynamically stable, lives locally, has reliable transportation and ability to follow up with her primary OBGYN (which patient
prefers).
-I counseled the patient extensively about methotrexate. She has no contraindications to MTX. She is motivated to avoid surgery and prefers medical management. She understands all possible side effects including oral ulcers, abd pain, GI upset, and
cramping. She understands there are potential teratogenic effects if an intrauterine is exposed to MTX, including anatomic defects or miscarriage. She understands there is a possibility of medication failure requiring either a second
dose of MTX or surgical intervention. She understands that, until complete resolution, there is awlways a possibility of internal bleeding or ectopic rupture requiring surgery or emergency surgery. She is able to comply with close follow
up including blood work, and is able to go for hCG levels on day 4 and day 7, which should be does at the same lab. She has a support system and knows that if she has a change in status she must return to the ED. She is able to follow up after the
day 7 is collected. She is available by phone to discuss her condition and confirms her working phone as listed.
[2025-05-02 04:00] VITALS: BP 124/64
--- NOTE | 2025-05-02 05:21 | EDRN ---
Dr Vera said pt spoke with her doctor and has made her decision. Pt said she wants to speak with Dr Johnson about her decision. Dr Vera informed Dr Johnson who said it may be couple hours until she can come down to speak with pt. Dr Vera
informed pt of this.
--- NOTE | 2025-05-02 05:37 | EDRN ---
EDT answered pt's call arriaga and said pt complained she is feeling sick. Dr Vera informed.
[2025-05-02] MEDS: ZOFRAN ODT (ORALLY DISINTEGRATING) 4 MG PO (05:40)
--- NOTE | 2025-05-02 05:42 | EDRN ---
Pt talking on the phone. Pt medicated with zofran. Pt said her abd pain is increasing and asked what is going to be done for that. Asked pt what her decision is regarding her treatment. Pt said she would discuss it with Dr Johnson. Explained
to pt that if Dr Vera knows what her decision is, she can treat her accordingly. Pt said 'I'm doing that.' Asked pt what she means by 'that' and she said methotrexate. Dr Vera informed of pt's decision.
--- NOTE | 2025-05-02 06:18 | EDRN ---
Pt informed methotrexate ordered and must come from pharmacy. Pt asked what is going to be given to her for abdominal pain. Dr Vera informed and discussed with Dr Johnson, will place order.
--- NOTE | 2025-05-02 06:19 | EDRN ---
Called pharmacy for methotrexate
[2025-05-02] MEDS: TORADOL 30 MG IM (06:24)
[2025-05-02 06:30] VITALS: BP 123/64
[2025-05-02] MEDS: METHOTREXATE 2 MG IM ×2 (07:04→07:10)
--- NOTE | 2025-05-02 07:50 | EDRN ---
Attempted to review discharge instructions with patient. Patient stated 'Can I please just sign it. I really don't want to talk about it.'
[2025-05-02 07:56] VITALS: BP 123/64
== END 2025-05-02 07:59 | disposition home or self-care (01) ==
LOC: EMR 19:01
PROVIDERS: EMERGENCY PHYSICIAN Student in an Organized Health Care Education/Training Program
DX: O00.90 Unspecified ectopic pregnancy without intrauterine pregnancy (principal); O34.219 Maternal care for unspecified type scar from previous cesarean delivery; O99.511 Diseases of the respiratory system complicating pregnancy, first trimester; J45.909 Unspecified asthma, uncomplicated; O99.611 Diseases of the digestive system complicating pregnancy, first trimester; K21.9 Gastro-esophageal reflux disease without esophagitis; Z3A.01 Less than 8 weeks gestation of pregnancy; Z87.891 Personal history of nicotine dependence; Z88.0 Allergy status to penicillin
CPT/HCPCS: 99284; 96372 ×3; 76700; 76801; 76817; 80053; 81003; 81015; 83690; 84702; 84703; 85025; 87086; J9260